=== PATIENT | male | born 1995 | race Caucasian/White ===

== ENCOUNTER → 2016-12-11 | Outpatient (CLI) | payer SELFPAY | LOC: M OUTALCOH 09:02 | PROVIDERS: ATTEND Psychiatry & Neurology Psychiatry | DX: Z03.89 Encounter for observation for other suspected diseases and conditions ruled out (principal) ==

== ENCOUNTER 2016-12-24 10:38 | Outpatient (RCR) | payer SELFPAY | END 2017-01-10 | LOC: M OUTALCOH 10:38 | PROVIDERS: ATTEND Psychiatry & Neurology Psychiatry | DX: Z03.89 Encounter for observation for other suspected diseases and conditions ruled out (principal) ==

== ENCOUNTER 2017-12-14 03:19 | Emergency (ER) | payer OTHER, SELFPAY ==
[2017-12-14] MEDS: LIDOCAINE W/EPINEPHRINE 1% 20ML VIAL SC (04:15)
== END 2017-12-14 05:15 | disposition home or self-care (01) ==
LOC: M ED 03:19
DX: S01.81XA Laceration without foreign body of other part of head, initial encounter (principal); W18.30XA Fall on same level, unspecified, initial encounter; Y92.410 Unspecified street and highway as the place of occurrence of the external cause; Y93.01 Activity, walking, marching and hiking
CPT/HCPCS: 70450

== ENCOUNTER 2018-07-03 19:27 | Emergency (ER) | payer SELFPAY ==
[2018-07-03] MEDS: NORCO, ANEXSIA 5/325MG TABLET (HYDROcodone/ACETAMINOPHEN) PO (22:28)
[2018-07-03] MEDS: IBUPROFEN 600 MG TAB PO (22:28)
[2018-07-03] MEDS: NORCO 5/325MG TABLET (BULK FOR ED) PO (22:30)
== END 2018-07-03 22:37 | disposition home or self-care (01) ==
LOC: M ED 19:27
DX: S62.001A Unspecified fracture of navicular [scaphoid] bone of right wrist, initial encounter for closed fracture (principal); S60.212A Contusion of left wrist, initial encounter; V86.95XA Unspecified occupant of 3- or 4- wheeled all-terrain vehicle (ATV) injured in nontraffic accident, initial encounter; Y92.099 Unspecified place in other non-institutional residence as the place of occurrence of the external cause; Y93.9 Activity, unspecified; Y99.9 Unspecified external cause status; Z72.0 Tobacco use
CPT/HCPCS: 73100

== ENCOUNTER 2018-11-07 17:22 | Emergency (ER) | payer MEDICAID, SELFPAY ==
[~2018-11-07] VITALS: Ht 177.8 cm; Wt 65.9 kg
[~2018-11-07 17:22] MED LIST: IBUP-1022 PO
--- NOTE | 2018-11-07 17:56 | REP ---
Clinical: Trauma. Technique: AP, lateral, bilateral oblique views right hand . Findings: There is an acute fracture involving the distal metaphyseal region of of the fifth metacarpal bone with volar angulation and overlying soft tissue swelling. The metacarpophalangeal joint appears relatively unaffected. Remainder examination appears normal. Impression: Boxer's fracture involving the distal metaphysis of the fifth metacarpal bone with volar angulation. Electronically Signed by Kevin Dumont MD 11/07/2018 05:48 P
[2018-11-07] MEDS ORDERED: NORCOTAB PO (18:35)
[2018-11-07 18:46] VITALS: BP 114/67
== END 2018-11-07 18:52 | disposition home or self-care (01) ==
LOC: M ED 17:22
DX: S62.346A Nondisplaced fracture of base of fifth metacarpal bone, right hand, initial encounter for closed fracture (principal); W22.09XA Striking against other stationary object, initial encounter; Y92.098 Other place in other non-institutional residence as the place of occurrence of the external cause; F17.200 Nicotine dependence, unspecified, uncomplicated

== ENCOUNTER 2018-11-22 11:26 | Emergency (ER) | payer MEDICAID, OTHER ==
[~2018-11-22] VITALS: Ht 177.8 cm; Wt 68.2 kg
[~2018-11-22 11:26] MED LIST changes: +NORCOTAB PO
[2018-11-22] MEDS ORDERED: BACT800T5 PO (12:29)
[2018-11-22] MEDS ORDERED: BACT2CRE TOP (12:30)
[2018-11-22 12:40] VITALS: BP 121/74
== END 2018-11-22 12:45 | disposition home or self-care (01) ==
LOC: M ED 11:26
DX: L03.012 Cellulitis of left finger (principal); F17.200 Nicotine dependence, unspecified, uncomplicated

== ENCOUNTER 2021-01-23 10:59 | Emergency (ER) | payer MEDICAID, OTHER ==
[~2021-01-23] VITALS: Ht 177.8 cm; Wt 63.7 kg
[~2021-01-23 10:59] MED LIST changes: +BACT2CRE TOP; +BACT800T5 PO; +HYDR-3715 PO; -NORCOTAB PO
[2021-01-23] MEDS ORDERED: IBUP-1114 PO (11:10)
--- NOTE | 2021-01-23 12:09 | REP ---
INDICATION: left hand pain s/p blunt trauma. COMPARISON: None TECHNIQUE: Four views FINDINGS: There is a boxer's fracture. IMPRESSION: As above <Electronically signed by Joon Zuñiga > 01/23/21 [id number]
[2021-01-23 12:49] VITALS: BP 126/84
== END 2021-01-23 12:55 | disposition home or self-care (01) ==
LOC: M ED 10:59
DX: S62.397A Other fracture of fifth metacarpal bone, left hand, initial encounter for closed fracture (principal); W22.8XXA Striking against or struck by other objects, initial encounter; Y92.9 Unspecified place or not applicable; Y93.9 Activity, unspecified; Y99.9 Unspecified external cause status; F17.200 Nicotine dependence, unspecified, uncomplicated

== ENCOUNTER 2022-10-02 15:43 | Emergency (ER) | payer MEDICAID ==
[~2022-10-02] VITALS: Ht 177.8 cm; Wt 62.6 kg
[~2022-10-02 15:43] MED LIST changes: +IBUP-1114 PO
[2022-10-02 15:44] VITALS: BP 148/77
== END 2022-10-02 19:34 | disposition left against medical advice (07) ==
LOC: M ED 15:43
DX: Z53.21 Procedure and treatment not carried out due to patient leaving prior to being seen by health care provider (principal)

== ENCOUNTER 2023-05-13 10:11 | Emergency (ER) | payer MEDICAID, OTHER ==
[~2023-05-13] VITALS: Ht 177.8 cm; Wt 61.4 kg
[2023-05-13 10:12] VITALS: BP 124/82; TEMP 98.2; O2SAT 98
== END 2023-05-13 11:39 | disposition left against medical advice (07) ==
LOC: M ED 10:11
DX: Z53.21 Procedure and treatment not carried out due to patient leaving prior to being seen by health care provider (principal)

== ENCOUNTER → 2023-12-31 | Outpatient (REF) | payer OTHER | LOC: M LAB REF 21:44 | PROVIDERS: ATTEND Physician Assistant | DX: L98.8 Other specified disorders of the skin and subcutaneous tissue (principal); B95.7 Other staphylococcus as the cause of diseases classified elsewhere ==

== ENCOUNTER → 2024-01-02 | Outpatient (REF) | payer OTHER ==
[2024-01-02 19:24] LABS: BASO % 0.3 % (0.0-1.0); EOS # 0.1 10^3/uL (0.0-0.5); EOS % 0.7 % (0.0-3.0); HEMATOCRIT 53.1 % (42.0-52.0); HEMOGLOBIN 17.4 g/dl (13.5-17.5); LYMPH # 1.7 10^3/uL (1.5-5.0); LYMPH % 12.8 % (24.0-44.0); MEAN CORPUSCULAR HEMOGLOBIN 28.9 pg (27.0-33.0); MEAN CORPUSCULAR HGB CONC 32.8 g/dl (32.0-36.5); MEAN CORPUSCULAR VOLUME 88.1 fl (80.0-96.0); MONO # 1.3 10^3/uL (0.0-0.8); MONO % 10.2 % (2.0-8.0); NEUTROPHILS # 9.8 10^3/uL (1.5-8.5); NEUTROPHILS % 75.8 % (36.0-66.0); PLATELET COUNT, AUTOMATED 287 10^3/uL (150-450); RED BLOOD COUNT 6.03 10^6/uL (4.30-6.10); WHITE BLOOD COUNT 12.9 10^3/uL (4.0-10.0)
[2024-01-02 19:39] LABS: ALBUMIN 4.4 G/DL (3.2-5.2); ALKALINE PHOSPHATASE 95 U/L (46-116); ALT/SGPT 16 U/L (7.0-40); AST/SGOT 19 U/L (<34); BILIRUBIN,TOTAL 0.6 MG/DL (0.3-1.2); BLOOD UREA NITROGEN 9 MG/DL (9-23); CALCIUM LEVEL 9.9 MG/DL (8.5-10.1); CARBON DIOXIDE LEVEL 31 MMOL/L (20-31); CHLORIDE LEVEL 97 MMOL/L (98-107); CHOLESTEROL LEVEL 125 MG/DL (<200); CHOLESTEROL RISK RATIO 2.32 (<5); CREATININE FOR GFR 0.78 MG/DL (0.70-1.30); GLOMERULAR FILTRATION RATE > 60.0 (>60); GLUCOSE, FASTING 73 MG/DL (60-100); HDL CHOLESTEROL 53.7 MG/DL (>40); LDL CHOLESTEROL 57.7 MG/DL (<100); NON-HDL-C 71.3 MG/DL; POTASSIUM SERUM 4.9 MMOL/L (3.5-5.1); SODIUM LEVEL 133 MMOL/L (136-145); TRIGLYCERIDES LEVEL 68 MG/DL (<150)
[2024-01-02 19:41] LABS: THYROID STIMULATING HORMONE 2.684 uIU/ML (0.55-4.78)
== END ==
LOC: M LAB REF 16:29
PROVIDERS: ATTEND Nurse Practitioner Family
DX: L98.9 Disorder of the skin and subcutaneous tissue, unspecified (principal); R53.83 Other fatigue; Z13.220 Encounter for screening for lipoid disorders; Z11.9 Encounter for screening for infectious and parasitic diseases, unspecified

== ENCOUNTER → 2024-01-06 | Outpatient (REF) | payer OTHER ==
[2024-01-06 13:20] LABS: MONO REFLEX EBV COMP NEGATIVE (NEGATIVE)
[2024-01-06 13:22] LABS: BASO % 0.3 % (0.0-1.0); EOS # 0.1 10^3/uL (0.0-0.5); EOS % 1.2 % (0.0-3.0); HEMATOCRIT 48.7 % (42.0-52.0); HEMOGLOBIN 16.1 g/dl (13.5-17.5); LYMPH # 1.7 10^3/uL (1.5-5.0); LYMPH % 14.4 % (24.0-44.0); MEAN CORPUSCULAR HEMOGLOBIN 29.3 pg (27.0-33.0); MEAN CORPUSCULAR HGB CONC 33.1 g/dl (32.0-36.5); MEAN CORPUSCULAR VOLUME 88.5 fl (80.0-96.0); MONO % 8.6 % (2.0-8.0); NEUTROPHILS % 75.1 % (36.0-66.0); PLATELET COUNT, AUTOMATED 309 10^3/uL (150-450)
[2024-01-06 13:38] LABS: ERYTHROCYTE SEDIMENTATION RATE 58 mm/hr (0-15)
[2024-01-07 15:08] LABS: EBV AB TO NUCLEAR ANTIGEN <18.0 U/mL (0.0-17.9); EBV VIRAL CAPSID AG IgM <36.0 U/mL (0.0-35.9)
[2024-01-08 21:20] LABS: GC DNA AMPLIFICATION NEGATIVE (NEGATIVE)
== END ==
LOC: M LAB REF 12:32
PROVIDERS: ATTEND Nurse Practitioner Family
DX: R59.0 Localized enlarged lymph nodes (principal)

== ENCOUNTER → 2024-02-27 | Outpatient (REF) | payer OTHER ==
[2024-02-27 13:59] LABS: BASO % 0.4 % (0.0-1.0); EOS # 0.1 10^3/uL (0.0-0.5); EOS % 1.5 % (0.0-3.0); HEMATOCRIT 45.2 % (42.0-52.0); HEMOGLOBIN 14.9 g/dl (13.5-17.5); LYMPH # 1.5 10^3/uL (1.5-5.0); LYMPH % 16.2 % (24.0-44.0); MEAN CORPUSCULAR HEMOGLOBIN 28.9 pg (27.0-33.0); MEAN CORPUSCULAR VOLUME 87.8 fl (80.0-96.0); MONO % 10.5 % (2.0-8.0); NEUTROPHILS # 6.7 10^3/uL (1.5-8.5); NEUTROPHILS % 71.2 % (36.0-66.0); PLATELET COUNT, AUTOMATED 314 10^3/uL (150-450); RED BLOOD COUNT 5.15 10^6/uL (4.30-6.10); WHITE BLOOD COUNT 9.5 10^3/uL (4.0-10.0)
[2024-02-27 14:03] LABS: C REACTIVE PROTEIN QUANTITATIV 3.3 MG/DL (<1.0)
[2024-02-27 14:04] LABS: RHEUMATOID FACTOR QUANT 10.2 IU/ML (<14)
[2024-02-27 14:07] LABS: ERYTHROCYTE SEDIMENTATION RATE 37 mm/hr (0-15)
[2024-03-01 11:07] LABS: ANA (HEP2) Negative (.); ANTI DS-DNA AB Negative (Negative); CYCLIC CITRULLINATED PEPTIDE 5 units (0-19); SSA SJOGRENS A <0.2 AI (0.0-0.9); SSB SJOGRENS B <0.2 AI (0.0-0.9)
== END ==
LOC: M LAB REF 12:39
PROVIDERS: ATTEND Nurse Practitioner Family
DX: R69 Illness, unspecified (principal)

== ENCOUNTER → 2024-03-02 | Outpatient (REF) | payer OTHER ==
[2024-03-02 16:48] LABS: APPEARANCE, URINE TURBID (CLEAR); BACTERIA, URINE AUTO NEGATIVE (NEGATIVE); BILIRUBIN, URINE AUTO NEGATIVE (NEGATIVE); BLOOD, URINE BLOOD NEGATIVE (NEGATIVE); COLOR, URINE YELLOW (YELLOW); GLUCOSE, URINE (UA) AUTO NEGATIVE (NEGATIVE); KETONE, URINE AUTO TRACE mg/dL (NEGATIVE); LEUKOCYTE ESTERASE, URINE AUTO NEGATIVE (NEGATIVE); NITRITE, URINE AUTO NEGATIVE (NEGATIVE); PROTEIN, URINE AUTO NEGATIVE (NEGATIVE); RBC, URINE AUTO 0 /HPF (0-3); SPECIFIC GRAVITY URINE AUTO 1.025 (1.002-1.035); SQUAMOUS EPITHELIAL CELL UR AU 0 /HPF (0-6); WBC, URINE AUTO 0 /HPF (0-3)
[2024-03-02 18:47] LABS: GC DNA AMPLIFICATION NEGATIVE (NEGATIVE)
== END ==
LOC: M LAB REF 16:15
PROVIDERS: ATTEND Nurse Practitioner Family
DX: R07.0 Pain in throat (principal); R69 Illness, unspecified

== ENCOUNTER 2024-12-05 19:38 | Emergency (ER) | payer OTHER ==
[~2024-12-05] VITALS: Ht 177.8 cm; Wt 69.7 kg
[2024-12-05 19:42] VITALS: BP 140/75; TEMP 97.4; O2SAT 94
== END 2024-12-05 23:25 | disposition left against medical advice (07) ==
LOC: M ED 19:38
DX: Z53.21 Procedure and treatment not carried out due to patient leaving prior to being seen by health care provider (principal)

== ENCOUNTER → 2024-12-15 | Outpatient (REF) | payer OTHER | LOC: M LAB REF 17:31 | PROVIDERS: ATTEND Student in an Organized Health Care Education/Training Program | DX: J02.9 Acute pharyngitis, unspecified (principal) ==

== ENCOUNTER → 2024-12-16 | Outpatient (CLI) | payer OTHER ==
[~2024-12-16] MED LIST changes: +ISOVUE-370 76% 100ML VIAL ONE
== END ==
LOC: M PLAIMG 13:40
PROVIDERS: ATTEND Student in an Organized Health Care Education/Training Program
DX: J02.9 Acute pharyngitis, unspecified (principal)
CPT/HCPCS: 70491; Q9967

== ENCOUNTER → 2024-12-21 | Outpatient (REF) | payer OTHER ==
[~2024-12-21] MED LIST changes: -ISOVUE-370 76% 100ML VIAL ONE
[2024-12-21 17:38] LABS: ANTI-STREPTOLYSIN O QUANT 53.1 IU/ML (<195)
[2024-12-22 16:13] LABS: HIV 1&2 SCREEN NEGATIVE (NEGATIVE)
[2024-12-22 16:21] LABS: HEPATITIS C VIRUS ABY INDEX 0.06 INDEX (<0.8)
== END ==
LOC: M LAB REF 15:07
PROVIDERS: ATTEND Nurse Practitioner Family
DX: R69 Illness, unspecified (principal); K12.1 Other forms of stomatitis; Z11.3 Encounter for screening for infections with a predominantly sexual mode of transmission

== ENCOUNTER → 2024-12-23 | Outpatient (CLI) | payer OTHER | LOC: M PLARAD 09:12 | PROVIDERS: ATTEND Nurse Practitioner Family | DX: R51.9 Headache, unspecified (principal); M54.2 Cervicalgia; D72.829 Elevated white blood cell count, unspecified ==

== ENCOUNTER → 2025-02-03 | Outpatient (REF) | payer OTHER | LOC: M LAB REF 16:34 | PROVIDERS: ATTEND Nurse Practitioner Family | DX: R69 Illness, unspecified (principal) ==

== ENCOUNTER → 2025-02-04 | Outpatient (CLI) | payer OTHER | LOC: M WUC 09:32 | PROVIDERS: ATTEND Nurse Practitioner Family | DX: M79.641 Pain in right hand (principal); R93.6 Abnormal findings on diagnostic imaging of limbs ==

== ENCOUNTER → 2025-02-09 | Outpatient (CLI) | payer MEDICAID | LOC: M RAD 09:41 | PROVIDERS: ATTEND Pediatrics | DX: I80.01 Phlebitis and thrombophlebitis of superficial vessels of right lower extremity (principal) ==